=== PATIENT | male | born 2000 | race Caucasian/White ===

== ENCOUNTER 2019-03-21 07:28 | Day surgery (SDC) | payer OTHER ==
[2019-03-14 11:27] VITALS: BMI 24.3
[2019-03-21] MEDS ORDERED: MIDAZOLAM HCL 2 MG/2 ML SINGLE DOSE VIAL ONE ×3 (09:48→09:54)
[2019-03-21] MEDS ORDERED: PROPOFOL 20 ML ONE ×4 (09:48→12:08)
[2019-03-21] MEDS ORDERED: ROPIVACAINE HCL 0.5% 30ML VIAL ONE (09:54)
[2019-03-21] MEDS ORDERED: LIDOCAINE HCL/PF 2% SDV 5ML VIAL ONE (09:55)
[2019-03-21] MEDS ORDERED: ONDANSETRON 4 MG/2 ML VIAL ONE (09:55)
[2019-03-21] MEDS ORDERED: DEXAMETHASONE SOD PHOSPHATE 4 MG/1 ML VIAL ONE (09:55)
[2019-03-21] MEDS ORDERED: BUPIVACAINE HCL/EPINEPHRINE/PF 30 ML VIAL IJ ONE (11:02)
[2019-03-21] MEDS ORDERED: ceFAZolin SODIUM 1 GM VIAL ONE (11:17)
--- NOTE | 2019-03-21 12:50 | OP ---
Operative Note - Note: Operative Date: 03/21/19 Pre-Operative Diagnosis: left shoulder posterior labral tear Operation: Left shoulder arthroscopy with posterior labral repair Post-Operative Diagnosis: Same as Pre-op Surgeon: [facility] [employer] Chair: Lisa Ramos Anesthesiologist/ERADICATOR: Jon Brink Anesthesia: Local, MAC Estimated Blood Loss (mls): 10 Fluid Volume Replaced (mls): 1,000 Operative Report Dictated: Yes
--- NOTE | 2019-03-21 12:51 | SURG ---
Surgery Camp Nurse Note Camp Nurse: Lisa Ramos PA-C Date of Service: 03/21/19 Diagnosis: left shoulder labral tear Procedure: left shoulder arthroscopy with posterior labral repair I was present for the entirety of the operative procedure. For further detail, please refer to operative report. Visit type - Case Type Case Type: Scheduled - Emergency Emergency Visit: No - New patient This patient is new to me today: Yes Date on this admission: 03/21/19
[2019-03-21] MEDS ORDERED: oxyCODONE HCL 10 MG SUSTAINED ACTING TABLET PO ONE (13:09)
[2019-03-21] MEDS ORDERED: oxyCODONE HCL 5 MG TABLET PO PRN ×3 (13:09→13:15)
--- NOTE | 2019-03-21 13:13 | DS ---
Physical Examination Vital Signs: Vital Signs Temperature 97.6 F 03/21/19 12:45 Pulse Rate 85 03/21/19 12:55 Respiratory Rate 16 03/21/19 12:55 Blood Pressure 111/48 L 03/21/19 12:55 O2 Sat by Pulse Oximetry (%) 96 03/21/19 12:55 Discharge Summary Reason For Visit: LEFT SHOULDER POSTERIOR LABRAL TEAR Condition: Good - Instructions Diet, Activity, Other Instructions: Post Operative Instructions: Shoulder Arthroscopy Dr [facility] 1. Pain following a Shoulder Arthroscopy is variable and can be significant. Some patients will have more pain than others. You have been provided with a prescription for medication that contains a narcotic. You are not allowed to drive while on this medication. You should take Tylenol (Acetaminophen) when taking the pain medication ( it will NOT result in an overdose). Feel free to take medications such as Ibuprofen or Naprosyn in addition to the pain medicine if you do not have any problems with the NSAID class of medications. 2. Apply ice to the shoulder for 15 minutes every hour. You may continue this for as many days as necessary. 3. You may find sleeping on an incline (reclining chair) to be more comfortable for the first few days. 4. You must remain in your sling at all times except when showering. The only exception to this is to allow you to stretch your elbow a few times a day to prevent your hand and forearm from swelling. 5. You are not to use your arm to reach for anything, lift anything or carry anything until instructed otherwise. 6. You may remove the bandages in 48 hours. You may shower at that point. 7. Place band-aids on the sutures after your shower.Do not put any creams or lotions on the incision until after the sutures are removed. 8. Please call the office to schedule a visit to have your sutures removed. 9. If for any reason you believe you may have an infection or are concerned, please feel free to call me. I can be reached through our office number 24 hours a day. 10. Please call our office with any questions; we will review the surgical findings during your post-operative visit. Disposition: HOME - Home Medications Comprehensive Discharge Medication List: Ambulatory Orders NK [No Known Home Medication] 03/14/19
[2019-03-21] MEDS ORDERED: ONDANSETRON 4 MG/2 ML VIAL IVPUSH PRN (13:15)
[2019-03-21] MEDS ORDERED: PROMETHAZINE HCL 25 MG/1 ML VIAL IVPUSH PRN (13:15)
[2019-03-21 14:24] VITALS: TEMP 98.2
[2019-03-21 14:27] VITALS: BP 122/39; PULSE 84
== END 2019-03-21 14:20 | disposition home or self-care (01) ==
LOC: FASU 07:28
PROVIDERS: ATTEND Orthopaedic Surgery
PROC: 0RQK4ZZ Repair Left Shoulder Joint, Percutaneous Endoscopic Approach (ICD-10-PCS; principal; 2019-03-21 11:35)
DX: S43.431A Superior glenoid labrum lesion of right shoulder, initial encounter (principal); M25.312 Other instability, left shoulder; X58.XXXA Exposure to other specified factors, initial encounter; Y93.9 Activity, unspecified; Y92.9 Unspecified place or not applicable
CPT/HCPCS: 94760